=== PATIENT | male | born 1990 | race African-American/Black ===

== ENCOUNTER 2020-08-27 08:15 | Emergency (ER) | payer MEDICAID ==
[~2020-08-27] VITALS: Ht 172.7 cm; Wt 63.5 kg
[2020-08-27] MEDS ORDERED: PANTOPRAZOLE SO40 MG PO (10:56)
== END 2020-08-27 11:53 | disposition home or self-care (01) ==
LOC: ED 08:15
DX: K92.2 Gastrointestinal hemorrhage, unspecified (principal)
CPT/HCPCS: 74177; 80053; 83690; 85025; 86850; 86900; 86901; 96361; 99284-25; C9113; J2405; J7030; Q9967